=== PATIENT | female | born 1965 | race Caucasian/White ===

== ENCOUNTER → 2024-03-20 10:28 | Outpatient (REF) | payer SELFPAY | LOC: OPBD 10:28 | PROVIDERS: PCP Physician Assistant | DX: Z13.820 Encounter for screening for osteoporosis (principal) | CPT/HCPCS: 76499 ==

== ENCOUNTER → 2024-08-22 | Outpatient (CLI) | payer SELFPAY | END | disposition home or self-care (01) | PROVIDERS: PCP Physician Assistant; Referring Provider Obstetrics & Gynecology; Visit Provider Obstetrics & Gynecology | DX: Z13.820 Encounter for screening for osteoporosis (principal) | CPT/HCPCS: 76499 ==

== ENCOUNTER → 2025-01-22 | Outpatient (CLI) | payer SELFPAY | END | disposition home or self-care (01) | LOC: OPBD 08:34 → PAVLAB 08:58 | PROVIDERS: PCP Physician Assistant; Referring Provider Registered Nurse; Visit Provider Obstetrics & Gynecology | DX: Z13.820 Encounter for screening for osteoporosis (principal) | CPT/HCPCS: 36415; 76499 ==